=== PATIENT | female | born 1975 ===

== ENCOUNTER 2018-03-12 10:21 | Outpatient (CLI) | payer OTHER | END 2018-03-12 16:02 | disposition home or self-care (01) | LOC: MAMO-SONO 10:21 | DX: Z12.31 Encounter for screening mammogram for malignant neoplasm of breast (principal) ==

== ENCOUNTER 2018-04-02 13:46 | Outpatient (CLI) | payer OTHER | END 2018-04-02 13:54 | disposition home or self-care (01) | LOC: SONOGRAMA 13:46 | DX: D25.9 Leiomyoma of uterus, unspecified (principal) ==

== ENCOUNTER 2022-03-09 07:53 | Outpatient (CLI) | payer OTHER | END 2022-03-09 08:09 | disposition home or self-care (01) | LOC: MAMO-SONO 07:53 | PROVIDERS: ATTEND General Practice | DX: E07.9 Disorder of thyroid, unspecified (principal); R53.1 Weakness; Z12.89 Encounter for screening for malignant neoplasm of other sites; Z12.39 Encounter for other screening for malignant neoplasm of breast; Z11.3 Encounter for screening for infections with a predominantly sexual mode of transmission; Z12.11 Encounter for screening for malignant neoplasm of colon ==

== ENCOUNTER 2023-04-05 11:00 | Outpatient (CLI) | payer OTHER | END 2023-04-05 11:08 | disposition home or self-care (01) | LOC: MAMO-SONO 11:00 | PROVIDERS: ATTEND Specialist | DX: Z12.31 Encounter for screening mammogram for malignant neoplasm of breast (principal); N60.19 Diffuse cystic mastopathy of unspecified breast; N60.11 Diffuse cystic mastopathy of right breast; N60.12 Diffuse cystic mastopathy of left breast ==

== ENCOUNTER 2024-09-16 07:04 | Outpatient (CLI) | payer OTHER | END 2024-09-16 07:14 | disposition home or self-care (01) | LOC: MAMO-SONO 07:04 | PROVIDERS: ATTEND General Practice | DX: N64.9 Disorder of breast, unspecified (principal); E07.9 Disorder of thyroid, unspecified; Z12.31 Encounter for screening mammogram for malignant neoplasm of breast; Z12.39 Encounter for other screening for malignant neoplasm of breast; R10.9 Unspecified abdominal pain; E03.9 Hypothyroidism, unspecified; Z13.1 Encounter for screening for diabetes mellitus; Z13.220 Encounter for screening for lipoid disorders; Z13.228 Encounter for screening for other metabolic disorders; Z13.89 Encounter for screening for other disorder; R05.9 Cough, unspecified; R07.9 Chest pain, unspecified ==

== ENCOUNTER 2024-09-25 09:39 | Outpatient (CLI) | payer OTHER | END 2024-09-25 09:41 | disposition home or self-care (01) | LOC: MAMO-SONO 09:39 | PROVIDERS: ATTEND General Practice | DX: Z12.31 Encounter for screening mammogram for malignant neoplasm of breast (principal); Z12.39 Encounter for other screening for malignant neoplasm of breast; N64.9 Disorder of breast, unspecified ==

== ENCOUNTER 2025-01-01 11:28 | Outpatient (CLI) | payer OTHER | END 2025-01-01 11:35 | disposition home or self-care (01) | LOC: SONOGRAMA 11:28 | PROVIDERS: ATTEND Obstetrics & Gynecology | DX: R10.2 Pelvic and perineal pain (principal); N93.8 Other specified abnormal uterine and vaginal bleeding ==

== ENCOUNTER 2025-09-18 12:27 | Outpatient (CLI) | payer OTHER | END 2025-09-18 12:28 | disposition home or self-care (01) | LOC: SONOGRAMA 12:27 | PROVIDERS: ATTEND Specialist | DX: E04.1 Nontoxic single thyroid nodule (principal); L04.0 Acute lymphadenitis of face, head and neck ==

== ENCOUNTER 2025-10-27 10:57 | Outpatient (CLI) | payer OTHER | END 2025-10-27 10:59 | disposition home or self-care (01) | LOC: SONOGRAMA 10:57 | PROVIDERS: ATTEND Pathology Anatomic Pathology | DX: E04.1 Nontoxic single thyroid nodule (principal) ==